=== PATIENT | male | born 1935 | race Two or more races ===

== ENCOUNTER → 2018-02-23 | Outpatient (CLI) | payer MEDICARE, OTHER | END | disposition home or self-care (01) | LOC: Rad HDHVI 10:59 | PROVIDERS: ATTEND Internal Medicine Cardiovascular Disease | DX: I08.8 Other rheumatic multiple valve diseases (principal) | CPT/HCPCS: 93306 ==

== ENCOUNTER → 2018-02-24 | Outpatient (CLI) | payer MEDICARE, OTHER ==
[~2018-02-24] VITALS: Ht 177.8 cm; Wt 83.9 kg
[~2018-02-24] MED LIST: ADENOSINE 70 MG in GIVE UN-DILUTED 0 ML IV ONE; ADENOSINE 90 MG/30 ML INJ IV ONE
== END | disposition home or self-care (01) ==
LOC: Rad HDHVI 10:19
PROVIDERS: ATTEND Internal Medicine Cardiovascular Disease
DX: I08.8 Other rheumatic multiple valve diseases (principal); I10 Essential (primary) hypertension; E11.9 Type 2 diabetes mellitus without complications; E78.00 Pure hypercholesterolemia, unspecified
CPT/HCPCS: 78452; 93005; 96374; 96375; A9500; J0153

== ENCOUNTER → 2018-08-19 | Outpatient (CLI) | payer MEDICARE, OTHER ==
[~2018-08-19] MED LIST changes: -ADENOSINE 70 MG in GIVE UN-DILUTED 0 ML IV ONE; -ADENOSINE 90 MG/30 ML INJ IV ONE; +ASPI81CH43 PO; +AZIL40TA2 PO; +BUSP15TA60 PO; +CHOL20007 PO; +CLOB0.05 TOP; +CYA100I PO; +DEXL60CA3 PO; +DIPH25CA66 PO; +FENO5TAB PO; +FOLI1TAB6 PO; +GLIP-115 PO; +GLUC500C5 PO; +MULTTAB99 PO; +NIAC500T71 PO; +PYRI100T51 PO; +SIMV-13 PO; +SITA100T7 PO
[2018-08-19 08:45] VITALS: BP 140/55
[2018-08-19 09:15] VITALS: BP 125/57
[2018-08-19 12:54] LABS: Basophils # (auto) 0 uL; Basophils % (auto) 0.2 % (0.0-2.0); Eosinophils # (auto) 0.1 uL; Eosinophils % (auto) 1.7 % (0.0-7.0); Hematocrit 35.2 % (41.0-53.0); Hemoglobin 11.5 g/dL (13.5-17.5); Lymphocytes # (auto) 0.5 uL; Lymphocytes % (auto) 5.7 % (10.0-50.0); Mean Corpuscular Hemoglobin 31.3 pg (28.0-32.0); Mean Corpuscular Hgb Conc. 32.6 g/dL (32.0-36.0); Mean Corpuscular Volume 96.3 fL (80.0-100.0); Monocytes # (auto) 0.5 uL; Monocytes % (auto) 5.4 % (0.0-12.0); Neutrophils # (auto) 7.7 uL; Nucleated Red Blood Cells % 0.1 %; Platelet Count (auto) 258 10^3/uL (140-450); Red Blood Cells 3.66 10^6/uL (4.5-5.90); Red Cell Distribution Width 12.7 % (11.8-14.3); White Blood Cell 8.8 10^3/uL (4.4-10.8)
[2018-08-19 13:05] LABS: Partial Thromboplastin Time 27.3 sec (23.78-33.04); Prothrombin Time 10.7 sec (9.27-12.13)
[2018-08-19 13:09] LABS: BUN/Creatinine Ratio 16.9; Calcium 9.6 mg/dL (8.5-10.1); Potassium 5.4 mmol/L (3.5-5.1)
== END | disposition home or self-care (01) ==
LOC: CHF HDHVI 08:36
PROVIDERS: ATTEND Internal Medicine Cardiovascular Disease
DX: Z01.812 Encounter for preprocedural laboratory examination (principal); I10 Essential (primary) hypertension; D64.9 Anemia, unspecified; R79.1 Abnormal coagulation profile; R94.31 Abnormal electrocardiogram [ECG] [EKG]
CPT/HCPCS: 36415; 80048; 85025; 85610; 85730; 93005; G0463

== ENCOUNTER 2018-08-23 10:47 | Day surgery (SDC) | payer MEDICARE, OTHER ==
[~2018-08-23] VITALS: Ht 177.8 cm; Wt 80.7 kg
[2018-08-23] MEDS ORDERED: FLUMAZENIL 0.1 MG/ML INJ 10ML MDV IV ONE (11:15)
[2018-08-23] MEDS ORDERED: MIDAZOLAM HCL 1MG/1ML-2 ML VIAL IV ONE (11:15)
[2018-08-23] MEDS ORDERED: fentaNYL CITRATE 100 MCG/2 ML VL ONE (13:10)
[2018-08-23] MEDS ORDERED: IODIXANOL 320MG/ML 100ML BTL IV ONE ×2 (13:11→13:31)
[2018-08-23] MEDS ORDERED: LIDOCAINE 2%HCL (LOCAL ANESTH.) INJ 10ml MDV ONE (13:11)
[2018-08-23] MEDS ORDERED: LIDOCAINE 2% (LOCAL ANESTH.) PF 5ml SDV ONE (13:24)
[2018-08-23] MEDS ORDERED: LIDOCAINE HCL 100 MG/5ML (2%) SYRG INJ IV ONE (13:24)
[2018-08-23] MEDS ORDERED: MIDAZOLAM HCL 1MG/1ML-2 ML VIAL ONE (13:26)
[2018-08-23] MEDS ORDERED: ANGIOMAX 250 MG VIAL IV ONE (13:34)
[2018-08-23] MEDS ORDERED: SODIUM CHL 0.9% 0 ML ONE (13:34)
== END 2018-08-23 16:00 | disposition home or self-care (01) ==
LOC: CATH 10:47
PROVIDERS: ATTEND Internal Medicine Cardiovascular Disease
DX: I34.0 Nonrheumatic mitral (valve) insufficiency (principal); E11.22 Type 2 diabetes mellitus with diabetic chronic kidney disease; N18.3 Chronic kidney disease, stage 3 (moderate); E78.00 Pure hypercholesterolemia, unspecified; I13.0 Hypertensive heart and chronic kidney disease with heart failure and stage 1 through stage 4 chronic kidney disease, or unspecified chronic kidney disease; Z88.0 Allergy status to penicillin; Z95.5 Presence of coronary angioplasty implant and graft; Z82.3 Family history of stroke; Z79.82 Long term (current) use of aspirin; Z79.899 Other long term (current) drug therapy
CPT/HCPCS: 93312; 93460; 99152; A6257; C1751; C1760; C1887; C1894; J1644; J2001; J2250; J3010; J7030; Q9967